=== PATIENT | female | born 2005 | race Caucasian/White ===

== ENCOUNTER 2024-04-27 15:46 | Emergency (ER) | payer OTHER, SELFPAY ==
[2024-04-27 15:54] VITALS: BP 124/82
[2024-04-27 15:56] LABS: Glucose - Point of Care 105 mg/dl (70-99)
--- NOTE | 2024-04-27 15:57 | ED.GENMED ---
ED Provider Triage
<Alma Fischer OCCUPATIONAL HEALTH NURSE MANAGER - Last Filed: 04/27/24 16:08>
-
Patient seen by provider in Triage?: Seen in Triage
Attestation: A medical screening examination has been initiated by a qualified medical provider. Based on the assessment performed at this time, it has been determined that an emergent medical condition may exist and the patient has been informed
that further medical evaluation and possible additional diagnostic testing may be needed.
HPI: 18 yo female student at [employer], hx hypoglycemia, POTS, Depression, being worked up at [facility] for Adrenal Insufficiency presents with shakiness, 'feverish,' short of breath since awakening this a.m., took allergy meds for seasonal
allergies, took Alegra this a.m., states feverish 100.2 two hours ago at school, BS 56 at that time, given juice BS 105 here now. temp 98.6 here now.
Has appointment with Endocrinology in July.
Patient has copies of lab work from 04/02/2024 with her
GENERAL: Alert , in no apparent distress
EYE: No visual abnormalities.
ENT: No visible abnormalities.
CARDIAC: Tachycardia HR 120
LUNGS: No acute respiratory distress
NEUROLOGICAL: Alert and oriented
SKIN: Skin intact. No visible changes.
MUSCULOSKELETAL: Moving extremities normally
PSYCH: Normal and appropriate interaction.
This is a medical evaluation conducted in person to initiate diagnostic evaluation and provide initial therapeutics. Please see further documentation by the treating clinician.
History of Present Illness
<Alma Fischer OCCUPATIONAL HEALTH NURSE MANAGER - Last Filed: 04/27/24 16:08>
General
Chief Complaint: Weakness
Time Seen by Provider: 04/27/24 18:28
<Nick Nieves MD - Last Filed: 04/27/24 20:50>
General
Source: patient
Exam Limitations: none
Nursing documentation reviewed up to this point in time: agreed with
History of Present Illness
History of Present Illness:
18-year-old female with past medical history of POTS presents to the emergency room for evaluation of weakness, fatigue, chills. Patient notably says that she is in the midst of a workup for adrenal insufficiency�she says that she was having
symptoms of weight loss and low blood sugar and is seeing a specialist out of [facility] (because her father is in the and this is the closest specialist that they could see). She says that she was told that if she ever has
chills or shakiness that she should be evaluated for signs of adrenal crisis. She says that today she has felt weak and shaky and is having 'hot and cold flashes.' She said she had a fever to 102 �F. She does admit she has had a mild
nonproductive cough. She says she has some rhinorrhea but chronically gets these symptoms with change of seasons. She says she feels mildly short of breath. She has not had any vomiting or diarrhea. She denies any UTI symptoms. No vaginal
bleeding or discharge. She denies any other complaints.
Past History
<Alma Fischer OCCUPATIONAL HEALTH NURSE MANAGER - Last Filed: 04/27/24 16:08>
Past History
ED Past Medical History: Asthma and Other (Eating disorder)
Social History
Tobacco: Non-smoker
Drug: Marijuana
Review of Systems
<Nick Nieves MD - Last Filed: 04/27/24 20:50>
Review of Systems
All Other Systems: ROS reviewed and negative except as documented in HPI and ROS
Constitutional: Reports fever, fatigue and chills
EENT: Reports runny nose; Denies sore throat
Respiratory: Reports cough; Denies trouble breathing
Cardiac: Denies chest pain or palpitations
ABD/GI: Denies abdominal pain, nausea, vomiting or diarrhea
: Denies dysuria, frequency, flank pain or bleeding
Musculoskeletal: Denies neck pain or back pain
Neurological: Denies headache
Phy Exam
<Nick Nieves MD - Last Filed: 04/27/24 20:50>
Physical Exam
Physical Exam:
General: Awake, alert, oriented x3; no acute distress
Head: Normocephalic, atraumatic
Eyes: Conjunctiva normal, EOMI
Throat: Airway intact, handling secretions
Neck: Trachea midline, supple without meningismus
Lungs: Clear to auscultation bilaterally, no wheezing, rales, rhonchi
Heart: Regular rate and rhythm, no murmurs, gallops, or rubs
Abd: Soft, non distended, nontender
Neuro: Cranial nerves grossly intact, speech fluid
Skin: no rash
Extremities: No edema in extremities, equal pulses in all extremities
Scores
<Nick Nieves MD - Last Filed: 04/27/24 20:50>
Heart Failure Risk
Heart Failure Risk Score: Not Applicable
Heart Score for Chest Pain Patients
STEMI patient?: Not applicable
Withdrawal Assessment of Alcohol
Withdrawal Assessment Completed?: Not applicable
Course
<Alma Fischer OCCUPATIONAL HEALTH NURSE MANAGER - Last Filed: 04/27/24 16:08>
Orders/Labs/Results
Orders:
Orders
04/27/24 16:05
Test Result ONCE
04/27/24 16:07
Electrocardiogram (*1) Urgent
Reason for Study: Shortness of Breath
EKG- Treatment ONCE
04/27/24 16:11
Complete Blood Count/With Diff Urgent
Comprehensive Metabolic Panel Urgent
D-Dimer Urgent
HCG, Serum Qualitative Screen Urgent
04/27/24 18:37
TSH Reflex To Free T4 Urgent
04/27/24 18:44
COVID-19 Antigen Urgent
Source: Nasal Swab
Influenza A+B Rapid Molecular Urgent
LANCE Source: Nasal Swab
Specimen Description:
04/27/24 19:35
Cortisol, Random Urgent
04/27/24 20:28
CR Chest - 2 Views Urgent
Comment:
Reason For Exam: sob, cough, fever
04/27/24 20:30
Urinalysis Reflex To Culture Urgent
Date Specimen was Collected: 04/27/24
Time Specimen was Collected: 20:44
Abnormal Lab Results
04/27/24 04/27/24
15:54 16:11
MCH 31.2 H pg
(27.0-31.0)
MPV 10.5 H fL
(7.4-10.4)
Absolute Monos (auto) 0.7 H 10^3/uL
(0.1-0.6)
Monocytes % 11.3 H %
(1.7-9.3)
POC Glucose 105 H mg/dl
(70-99)
04/27/24 16:11
04/27/24 16:11
Vital Signs
Initial and Last Documented VS:
Initial Vital Signs
Temp Pulse Resp BP Pulse Ox
36.8 C 128 16 124/82 98
04/27/24 15:54 04/27/24 15:54 04/27/24 15:54 04/27/24 15:54 04/27/24 15:54
Last Documented Vital Signs
Temp Pulse Resp BP Pulse Ox
36.8 C 103 22 119/73 97
04/27/24 15:54 04/27/24 20:15 04/27/24 20:15 04/27/24 18:15 04/27/24 20:15
<Nick Nieves MD - Last Filed: 04/27/24 20:50>
Orders/Labs/Results
Orders:
Orders
04/27/24 16:05
Test Result ONCE
04/27/24 16:07
Electrocardiogram (*1) Urgent
Reason for Study: Shortness of Breath
EKG- Treatment ONCE
04/27/24 16:11
Complete Blood Count/With Diff Urgent
Comprehensive Metabolic Panel Urgent
D-Dimer Urgent
HCG, Serum Qualitative Screen Urgent
04/27/24 18:37
TSH Reflex To Free T4 Urgent
04/27/24 18:44
COVID-19 Antigen Urgent
Source: Nasal Swab
Influenza A+B Rapid Molecular Urgent
LANCE Source: Nasal Swab
Specimen Description:
04/27/24 19:35
Cortisol, Random Urgent
04/27/24 20:28
CR Chest - 2 Views Urgent
Comment:
Reason For Exam: sob, cough, fever
04/27/24 20:30
Urinalysis Reflex To Culture Urgent
Date Specimen was Collected: 04/27/24
Time Specimen was Collected: 20:44
Abnormal Lab Results
04/27/24 04/27/24
15:54 16:11
MCH 31.2 H pg
(27.0-31.0)
MPV 10.5 H fL
(7.4-10.4)
Absolute Monos (auto) 0.7 H 10^3/uL
(0.1-0.6)
Monocytes % 11.3 H %
(1.7-9.3)
POC Glucose 105 H mg/dl
(70-99)
04/27/24 16:11
04/27/24 16:11
Vital Signs
Initial and Last Documented VS:
Initial Vital Signs
Temp Pulse Resp BP Pulse Ox
36.8 C 128 16 124/82 98
04/27/24 15:54 04/27/24 15:54 04/27/24 15:54 04/27/24 15:54 04/27/24 15:54
Last Documented Vital Signs
Temp Pulse Resp BP Pulse Ox
36.8 C 103 22 119/73 97
04/27/24 15:54 04/27/24 20:15 04/27/24 20:15 04/27/24 18:15 04/27/24 20:15
<Nick Nieves MD - Last Filed: 04/27/24 20:50>
MDM/Problems Addressed
Differential Diagnosis Includes:
Viral syndrome, pneumonia, UTI, adrenal insufficiency, hyperthyroidism
MDM/Problems Addressed:
18-year-old female presents for evaluation of shakiness, fever, chills today associated with recent cough. She says she has been worked up for adrenal insufficiency and was told that the symptoms could be related to an adrenal crisis. Sent to the
ER for evaluation. Tachycardic in triage but heart rate improved by my assessment. Rest of vitals normal. Physical exam as above. She had labs sent in triage including a CBC which was unremarkable, CMP showed no clinically significant
abnormalities. Her hCG is negative. She had a D-dimer sent in triage which was normal. Will test for COVID and flu. Will check chest x-ray. Check urinalysis. Check random cortisol and thyroid studies. Reassess after the above.
Random cortisol level normal. Thyroid studies normal. Chest x-ray reviewed by me shows no acute pathology. Clinical picture seems most consistent with a viral syndrome. Stable for discharge at this point can follow-up with PCP as an outpatient.
Spoke about return precautions and all questions answered.
<Nick Nieves MD - Last Filed: 04/27/24 20:50>
*Radiology
Radiology exam reviewed: preliminary read by ED provider and radiology read reviewed
*Pulse Oximetry
Patient hypoxic: no
*EKG
Interpreted by ED Provider?: Yes
Heart Rate: 101
Rate: tachycardiac
Rhythm: sinus and sinus tachycardia
Queen: normal axis
Interval: normal interval
QRS Pattern: normal QRS
Ischemia: non-specific ST changes
*Critical Care Note
Total Time (30-74mins, 75-104mins- exclusive of procedures): Not Applicable
Data Reviewed
Source: patient
ED Attending Note
<Alma Fischer NP - Last Filed: 04/27/24 16:08>
-
Portions of this chart may have been created with voice recognition software.� Occasional wrong word or��sound alike� substitutions may have occurred due to the inherent limitations of voice recognition software.
Discharge Plan
Departure
Patient Disposition: Home (Routine Discharge)
Date of Disposition: 04/27/24
Time of Disposition: 20:46
Patient with high blood pressure during this ER visit?: No
Discharge Problem:
Acute viral syndrome
Instructions: Viral Tests
Prescriptions:
No Action
escitalopram oxalate [Lexapro] 10 mg Tablet
10 mg PO DAILY
Referrals:
UNKNOWN - PT DOES,NOT KNOW [Family Provider] -
Activity Restrictions/Additional Instructions:
Thank you for visiting the Emergency Department at [facility].
1. Please schedule a follow up appointment as directed. Call first thing tomorrow morning to make an appointment.
2. If indicated, please take your medications as instructed and indicated on discharge paperwork.
3. If any of your symptoms do not improve, or persist, or become more severe within 6-12 hours, please return to the emergency department for further care.
4. Please return to the emergency department if you develop a headache, neck pain/stiffness, fever greater than 100.4F, chest pain, shortness of breath, persistent nausea, vomiting, slurred speech, difficulty walking, numbness/tingling, weakness,
signs of infection or any other symptoms that are worrisome to you.
Please call [phone] if you have any questions.
Interventions
Interventions:
*Risk Screen - Suicide Last Done: 04/27/24 15:54
*General Assessment Last Done: 04/27/24 18:12
*Neglect/Abuse Screening Last Done: 04/27/24 15:54
ED- Fall Risk Assessment Last Done: 04/27/24 18:12
*ED COVID-19 Vaccine History Last Done: 04/27/24 18:12
ED- Cardiac Assessment Last Done: 04/27/24 18:17
ED- Neurological Assessment Last Done: 04/27/24 18:17
ED- Pulmonary Assessment Last Done: 04/27/24 18:17
Discharge Date and Time
Print Language: INDONESIAN
[2024-04-27 16:27] LABS: % Basophils 0.8 % (0-2); % Eosinophils 2.2 % (0-6); % Immature Granulocytes 0.3 % (0-0.5); % Lymphocytes 25.1 % (20.5-51.1); % Monocytes 11.3 % (1.7-9.3); % Neutrophils 60.3 % (42.2-75.2); Absolute Basophils 0.1 10^3/uL (0-0.2); Absolute Eosinophils 0.1 10^3/uL (0-0.7); Absolute Lymphocytes 1.5 10^3/uL (1.2-3.4); Absolute Monocytes 0.7 10^3/uL (0.1-0.6); Absolute Neutrophils 3.6 10^3/uL (1.4-6.5); Hematocrit 39.5 % (37.0-47.0); Hemoglobin 13.6 g/dL (12.0-16.0); Mean Corp Hgb Conc. 34.4 g/dL (33.0-37.0); Mean Corpuscular Hgb 31.2 pg (27.0-31.0); Mean Corpuscular Volume 90.6 fL (81.0-99.0); Mean Platelet Volume 10.5 fL (7.4-10.4); Nucleated Red Blood Cells % 0 %; Platelet Count 245 10^3/uL (130-400); Red Blood Cell Count 4.36 10^6/uL (4.20-5.40); Red Cell Dist. Width 12.5 % (11.5-14.5); White Blood Cell Count 5.9 10^3/uL (4.8-10.8)
[2024-04-27 16:49] LABS: ALT (SGPT) 25 U/L (0-35); AST (SGOT) 28 U/L (14-36); Albumin 4.9 g/dl (3.5-5.0); Alkaline Phosphatase 50 U/L (38-126); Blood Urea Nitrogen 11 mg/dl (7-17); Carbon Dioxide 24 mmol/L (22-30); Chloride 102 mmol/L (98-107); Glucose 96 mg/dl (70-99); HCG, Serum Qualitative Screen Negative; Potassium 3.7 mmol/L (3.5-5.1); Sodium 141 mmol/L (135-145); Total Bilirubin 0.5 mg/dl (0.2-1.3); Total Protein 7.2 g/dl (6.3-8.2); eGFR > 60.00
[2024-04-27 17:13] LABS: D-Dimer < 0.27 ug/mlFEU (0.00-0.50)
[2024-04-27 18:12] VITALS: BMI 27.4
[2024-04-27 18:15] VITALS: BP 119/73
[2024-04-27 19:08] LABS: COVID-19 Antigen Negative (Negative)
[2024-04-27 20:35] LABS: Cortisol, Random 3.6 ug/dl
[2024-04-27 20:40] LABS: TSH Reflex To Free T4 0.52 uIU/ml (0.47-4.68)
[2024-04-27 21:29] LABS: Urine Albumin Negative (Neg - Trace); Urine Bilirubin Negative (Negative); Urine Character Clear (Clear); Urine Color Yellow; Urine Glucose Negative (Negative); Urine Ketone Negative (Negative); Urine Leukocyte Negative (Negative); Urine Nitrite Negative (Negative); Urine Occult Blood Negative (Negative); Urine Specific Gravity 1.015 (<1.030); Urine Urobilinogen Negative (Neg - 1+)
== END 2024-04-27 20:56 | disposition home or self-care (01) ==
LOC: EMR 15:46
PROVIDERS: Registered Nurse; EMERGENCY PHYSICIAN Emergency Medicine
DX: B34.9 Viral infection, unspecified (principal); E16.2 Hypoglycemia, unspecified; G90.A Postural orthostatic tachycardia syndrome [POTS]; F32.A Depression, unspecified; J45.909 Unspecified asthma, uncomplicated; F50.9 Eating disorder, unspecified
CPT/HCPCS: 99283; 71046; 80053; 81003; 82533; 82962; 84443; 84703; 85025; 85379; 87502; 87811; 93005

== ENCOUNTER 2024-08-26 20:15 | Emergency (ER) | payer SELFPAY ==
[2024-08-26 20:22] VITALS: BP 120/84
[2024-08-26 22:23] VITALS: BP 121/79
[2024-08-26 23:12] VITALS: BMI 28.8
[2024-08-26 23:27] VITALS: BP 143/80
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
[2024-08-27] VITALS: BP 111/74
[2024-08-27] MEDS: MOTRIN 600 MG PO (00:01)
[2024-08-27] MEDS: SOLU-CORTEF 100 MG IM (00:01)
[2024-08-27 00:59] VITALS: BP 112/77
== END 2024-08-27 01:06 | disposition home or self-care (01) ==
LOC: EMR 20:15
PROVIDERS: EMERGENCY PHYSICIAN Emergency Medicine
DX: S16.1XXA Strain of muscle, fascia and tendon at neck level, initial encounter (principal); S20.219A Contusion of unspecified front wall of thorax, initial encounter; E27.40 Unspecified adrenocortical insufficiency; V49.40XA Driver injured in collision with unspecified motor vehicles in traffic accident, initial encounter; Y92.410 Unspecified street and highway as the place of occurrence of the external cause; R50.9 Fever, unspecified; B34.9 Viral infection, unspecified; R51.9 Headache, unspecified; G90.A Postural orthostatic tachycardia syndrome [POTS]
CPT/HCPCS: 99284; 96372; 70450; 71046; 72125